=== PATIENT | male | born 1990 | race African-American/Black ===

== ENCOUNTER 2024-09-02 22:56 | Emergency (ER) | payer OTHER ==
[~2024-09-02] VITALS: Ht 182.9 cm; Wt 90.0 kg
[2024-09-02 23:01] VITALS: TEMP 36.4; O2SAT 97
[2024-09-03] MEDS ORDERED: IBUP-2030 MT (03:06)
[2024-09-03 03:12] VITALS: BP 118/67; PULSE 68; RESP 16
[2024-09-03] MEDS: HYDROCODONE/ACETAMINOPHEN 10/325MG TABLET PO ONE (03:12)
[2024-09-03] MEDS: IBUPROFEN 800MG TABLET PO ONE (03:12)
== END 2024-09-03 03:14 | disposition home or self-care (01) ==
LOC: ER 22:56
DX: S83.8X1A Sprain of other specified parts of right knee, initial encounter (principal); V03.99XA Pedestrian with other conveyance injured in collision with car, pick-up truck or van, unspecified whether traffic or nontraffic accident, initial encounter; Y93.89 Activity, other specified; Y92.89 Other specified places as the place of occurrence of the external cause; Y99.8 Other external cause status
CPT/HCPCS: 73562; 99283

== ENCOUNTER 2024-11-19 21:46 | Emergency (ER) | payer OTHER ==
[~2024-11-19] VITALS: Ht 170.2 cm; Wt 68.0 kg
[~2024-11-19 21:46] MED LIST: IBUP-2030 MT
[2024-11-19 21:57] VITALS: O2SAT 98
[2024-11-19 22:55] LABS: BASOPHILS % 0.6 % (0.0-2.0); DIFFERENTIAL COMMENT 0; EOSINOPHILS % 1.9 % (0.0-5.0); HEMATOCRIT. 39.2 % (42.0-52.0); HEMOGLOBIN. 13.1 g/dL (14.0-18.0); LYMPHOCYTES % 59.7 % (20.0-50.0); MEAN CORPUSCULAR HEMOGLOBIN 25.9 pg (28.0-32.0); MEAN CORPUSCULAR HGB CONC 33.6 g/dL (31.0-37.0); MEAN CORPUSCULAR VOLUME 77.1 fL (80.0-94.0); MONOCYTES % 7.6 % (2.0-8.0); NEUTROPHILS % 30.2 % (40.0-76.0); PLATELET 87 x1000/uL (130-400); RED BLOOD CELL COUNT 5.08 mill/uL (4.7-6.1); RED CELL DISTRIBUTION WIDTH 16.3 % (11.6-14.6); WHITE BLOOD COUNT 3.3 x1000/uL (4.5-11.0)
[2024-11-19 23:05] LABS: CHLORIDE 110 mEq/L (98-107); POTASSIUM 3.6 mEq/L (3.5-5.1); SODIUM 142 mEq/L (136-145)
[2024-11-19 23:06] LABS: CALCIUM 8.9 mg/dL (8.7-10.4); CARBON DIOXIDE 28 mEq/L (21-32)
[2024-11-19 23:11] LABS: CREATININE 1.3 mg/dL (0.6-1.3); GLUCOSE 108 mg/dL (70-105); UREA NITROGEN BLOOD 13 mg/dL (9-23)
[2024-11-19 23:13] LABS: CREATINE KINASE 179 IU/L (46-171)
[2024-11-19] MEDS ORDERED: METH-653 MT (23:30)
[2024-11-19] MEDS ORDERED: IBUP-2029 MT (23:30)
[2024-11-19 23:58] VITALS: BP 102/67; PULSE 60; RESP 18; TEMP 36.6; O2SAT 98
== END 2024-11-20 | disposition home or self-care (01) ==
LOC: ER 21:46
DX: M25.562 Pain in left knee (principal); M25.561 Pain in right knee; D69.6 Thrombocytopenia, unspecified; Z55.6 Problems related to health literacy; Z79.899 Other long term (current) drug therapy
CPT/HCPCS: 36415; 80048; 82550; 85025; 99283